=== PATIENT | male | born 1985 | race Caucasian/White ===

== ENCOUNTER 2020-02-03 | Emergency (ER) | payer OTHER ==
[2020-02-03] MEDS ORDERED: IBUPROFEN600 MG PO (11:52)
[2020-02-03] MEDS ORDERED: VOLTAREN1%GEL TOP (11:52)
== END 2020-02-03 12:03 | disposition home or self-care (01) | DRG 552 ==
DX: M54.5 Low back pain (principal); V59.40XA Driver of pick-up truck or van injured in collision with unspecified motor vehicles in traffic accident, initial encounter